=== PATIENT | male | born 1960 | race Caucasian/White ===

== ENCOUNTER → 2017-11-10 | Outpatient (REF) ==
[~2017-11-10] MED LIST: ASP325 PO; CYCL10TA29 PO; DICY-42 PO; FINA5TAB67; GLUC-234 PO; HYDR-4309 PO; MULT-820 PO; NAB500 PO; NAPR-1043 PO; TAMS0.4C25 PO; TAMS0.4C70; VITA1CAP46 PO
== END ==
LOC: AUD 09:40
PROVIDERS: ATTEND Family Medicine
DX: Z01.10 Encounter for examination of ears and hearing without abnormal findings (principal)
CPT/HCPCS: 92552

== ENCOUNTER → 2018-10-22 | Outpatient (CLI) | payer BC ==
[~2018-10-22] MED LIST changes: -HYDR-4309 PO; +HYDR-653 PO; +IOPAMIDOL 76% 100 ML INFUS BTL 100 ML ONE
--- NOTE | 2018-10-22 12:31 | RADIOLOGY IMAGING REPORT ---
FACILITY: [facility] PATIENT NAME: Dwayne Morrison : 1960 MR: [id number] V: [id number] EXAM DATE: ORDERING PHYSICIAN: NEGAR BARRIOS TECHNOLOGIST: Location[place] [facility] [place] Patient: Dwayne Morrison : 1960 Visit/Account:[id number] Date of Sevice: 10/22/2018 CT ABDOMEN WITH AND WITHOUT CONTRAST CLINICAL INFORMATION: Chronic pancreatitis, episodic mid abdomen pain TECHNIQUE: Axial CT images were obtained through the abdomen before and after injection of nonionic iodinated intravenous contrast. Reformatted coronal and sagittal images were also obtained. Pre cont rast and delayed images in the arterial phase and portal venous phase were obtained. Dose Lowering [place] One of the following dose optimization techniques was utilized in the performance of this exam: Autom ated exposure control; adjustment of the mA and/or kV according to the patient's size; or use of an i terative reconstruction technique. Specific details can be referenced in the facility's radiology C T exam operational policy. CONTRAST: 85ml of IV Isovue-370 contrast. COMPARISON: CT abdomen January 05, 2014. FINDINGS: Lower lung patel: Limited views lower lung field are unremarkable. Liver: There several small peripheral areas of arterial enhancement within the liver that likely repr esent perfusional variants. Biliary: Postsurgical changes from a cholecystectomy Pancreas: Normal appearance. Spleen: Normal appearance. Adrenal glands: Unremarkable. Kidneys / retroperitoneum: No evidence of nephrolithiasis or hydronephrosis Bowel / peritoneum / mesenteries: There is mild dilatation of several loops of small bowel in the upp er abdomen measuring up to 3.2 cm in diameter. There appears to be mild nodular thickening of a loop of small bowel in the right midabdomen best seen on coronal images 33 through 40 of series 13 Vessels: No significant atherosclerotic calcification seen throughout a nonaneurysmal abdominal aorta and branches. Musculoskeletal / Body wall: There spondylotic changes of the thoracolumbar spine slightly more advan irineo when compared to the prior study Lymph node assessment: No pathologic adenopathy identified. IMPRESSION: 1. Pancreas appears unremarkable at this time There is mild dilatation of several loops of small bowel in the upper abdomen measuring up to 3.2 gil ters in diameter. There appears be mild nodular thickening of the small bowel in the right mid abdom en as described above. This could represent an infectious/inflammatory process although the nodular thickening may also represent intraluminal mass lesion therefore clinical correlation needed . CT en terography may be helpful for further evaluation Additional chronic findings as described Report Dictated By: Ayana Ford MD at 10/22/2018 12:05 PM Report E-Signed By: Ayana Ford MD at 10/22/2018 12:27 PM WSN:[email or web address]
== END ==
LOC: CT 04:32
PROVIDERS: ATTEND Internal Medicine Gastroenterology
DX: K63.89 Other specified diseases of intestine (principal); M47.895 Other spondylosis, thoracolumbar region
CPT/HCPCS: 74170; Q9967

== ENCOUNTER → 2018-11-03 | Outpatient (CLI) | payer BC ==
[~2018-11-03] MED LIST changes: +BARIUM SULFATE 450 ML SUSP ONE
--- NOTE | 2018-11-03 13:32 | RADIOLOGY IMAGING REPORT ---
FACILITY: [facility] - [place] PATIENT NAME: Dwayne Morrison : 1960 MR: [id number] V: [id number] EXAM DATE: ORDERING PHYSICIAN: NEGAR BARRIOS TECHNOLOGIST: Location: [facility] Patient: Dwayne Morrison : 1960 Visit/Account:[id number] Date of Sevice: 11/03/2018 CT ABDOMEN PELVIS W/ CON HISTORY: Thickened small intestine wall TECHNIQUE: Following administration of IV contrast contiguous axial images acquired through the abdom en/pelvis. Coronal and sagittal reformatting also performed.Dose Lowering Technique One of the following dose optimization techniques was utilized in the performance of this exam: Autom ated exposure control; adjustment of the mA and/or kV according to the patient's size; or use of an i terative reconstruction technique. Specific details can be referenced in the facility's radiology C T exam operational policy. CONTRAST: 75 mL Isovue-370 COMPARISON: October 22, 2018 FINDINGS: Visualized lung bases: Negative. Hepatobiliary: There postsurgical changes from a cholecystectomy Spleen: Negative. Adrenals: Negative. Pancreas: Negative. Kidneys ureters or bladder: Negative. Genitalia: Negative. GI: There is narrowing of the third portion of the duodenum as it passes between the SMA and aorta. The small bowel in the upper abdomen appears less dilated when compared the prior study although ther e is marked thickening and enhancement of numerous loops of small bowel in the upper abdomen. The no dular thickening of the loop of small bowel in the right mid abdomen appears much less prominent There is diverticulosis left-sided colon although no CT evidence of acute diverticulitis Vessels/spaces/nodes: Negative. Bones/soft tissues: There spondylotic changes of the thoracolumbar spine Additional findings: None pertinent. IMPRESSION: There is narrowing of the third portion the duodenum as it passes between the SMA and aorta. The small bowel and the upper abdomen appears less dilated when compared the prior study although the re is marked thickening and enhancement of numerous loops of small bowel within the upper abdomen. A s previously noted this may represent an infectious/inflammatory process. The previously noted nodular thickening of a loop of small bowel in the right mid abdomen appears imp roved Diverticulosis left-sided colon Report Dictated By: Ayana Ford MD at 11/03/2018 12:02 PM Report E-Signed By: Ayana Ford MD at 11/03/2018 1:29 PM WSN:[email or web address]
== END ==
LOC: CT 00:28
PROVIDERS: ATTEND Internal Medicine Gastroenterology
DX: K57.30 Diverticulosis of large intestine without perforation or abscess without bleeding (principal); K56.699 Other intestinal obstruction unspecified as to partial versus complete obstruction
CPT/HCPCS: 74177; Q9967

== ENCOUNTER → 2018-11-09 | Outpatient (REF) ==
[~2018-11-09] MED LIST changes: -BARIUM SULFATE 450 ML SUSP ONE; -IOPAMIDOL 76% 100 ML INFUS BTL 100 ML ONE
== END ==
LOC: AUD 13:38
PROVIDERS: ATTEND Family Medicine
DX: Z01.12 Encounter for hearing conservation and treatment (principal)
CPT/HCPCS: 92552